=== PATIENT | female | born 1995 | race Caucasian/White ===

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

== ENCOUNTER 2019-12-28 14:23 | Emergency (ER) | payer OTHER ==
[2019-12-28 14:40] VITALS: BP 137/75; PULSE 82; RESP 18; TEMP 99.1
[2019-12-28 15:05] LABS: Appearance,Urine Cloudy (Clear); Bacteria,Urine Rare /hpf; Bilirubin,Urine Negative (Negative); Blood,Urine Large (Negative); Color,Urine Yellow; Glucose,Urine (UA) Negative (Negative); Ketones,Urine Negative (Negative); Leukocyte Esterase,Urine Moderate (Negative); Mucus,Urine Occasional /hpf; Nitrite,Urine Negative (Negative); Protein,Urine Trace (Negative); RBC,Urine >182 /hpf (0-5); Specific Gravity,Urine 1.023 (1.001-1.035); Squamous Epithelial Cell,Urine 17 /hpf (0-4); Urobilinogen,Urine <2.0 mg/dL (<2.0); WBC,Urine 7 /hpf (0-5)
--- NOTE | 2019-12-28 15:34 | ED ---
Back Pain HPI - General Chief Complaint: Back Pain/Injury Stated Complaint: Left side abd pain Time Seen by Provider: 12/28/19 15:31 Source: patient Limitations: no limitations - History of Present Illness Initial Comments: 24-year-old male presenting to the emergency department with a chief complaint of left flank pain. Patient reports this was sudden onset pain is started ye sterday. States the pain is starting to radiate towards her groin. She does report some nausea but denies any vomiting. States the pain is sharp in nature and intermittent. She denies any night sweats fevers or chills. Denies dysuria, increased urgency or frequency. Denies any vaginal symptoms. Denies any chest pain shortness of breath. She does report taking a muscle relaxer home with no significant improvement in symptoms. - Related Data Home Medications Medication Instructions Recorded Confirmed FLUoxetine HCL [PROzac] 40 mg PO DAILY 11/18/13 06/12/14 Norgestimate-Ethinyl Estradiol 1 tab PO DAILY 11/18/13 06/12/14 [Trinessa Tablet] Lisdexamfetamine Dimesylate 30 mg PO QAM 06/12/14 06/12/14 [Vyvanse] PARoxetine [Paxil] 20 mg PO DAILY 06/12/14 06/12/14 Previous Rx's Medication Instructions Recorded Naproxen [Naprosyn] 250 mg PO BID #20 tab 06/12/14 Cephalexin [Keflex] 500 mg PO Q6HR 1 Days #20 cap 12/28/19 Ondansetron Odt [Zofran Odt] 4 mg PO Q8HR PRN #14 tab 12/28/19 Tamsulosin [Flomax] 0.4 mg PO DAILY #7 cap 12/28/19 Allergies Allergy/AdvReac Type Severity Reaction Status Date / Time No Known Allergies Allergy Verified 12/28/19 14:40 Review of Systems ROS Statement: Those systems with pertinent positive or pertinent negative responses have been documented in the HPI. ROS Other: All systems not noted in ROS Statement are negative. Past Medical History Past Medical History: No Reported History History of Any Multi-Drug Resistant Organisms: None Reported Past Surgical History: Orthopedic Surgery, Tonsillectomy Past Psychological History: Anxiety, Bipolar, Depression, PTSD Smoking Status: Current every day smoker Past Alcohol Use History: None Reported Past Drug Use History: None Reported General Exam Limitations: no limitations General appearance: alert, in no apparent distress, obese Head exam: Present: atraumatic, normocephalic, normal inspection Eye exam: Present: normal appearance, PERRL, EOMI Pupils: Present: normal accommodation ENT exam: Present: normal exam, normal oropharynx, mucous membranes moist, TM's normal bilaterally, normal external ear exam Neck exam: Present: normal inspection, full ROM. Absent: tenderness Respiratory exam: Present: normal lung sounds bilaterally. Absent: respiratory distress, wheezes, rales Cardiovascular Exam: Present: regular rate, normal rhythm, normal heart sounds GI/Abdominal exam: Present: soft, tenderness (Left flank left lower quadrant), normal bowel sounds. Absent: distended, guarding, rebound, rigid Extremities exam: Present: normal inspection, full ROM, normal capillary refill. Absent: tenderness, pedal edema, joint swelling, calf tenderness Back exam: Present: normal inspection, full ROM, tenderness, CVA tenderness (L). Absent: CVA tenderness (R) Neurological exam: Present: alert, oriented X3, normal gait Psychiatric exam: Present: normal affect, normal mood Skin exam: Present: warm, dry, intact, normal color Course Vital Signs 12/28/19 14:38 Temperature 99.1 F Pulse Rate 82 Respiratory 18 Rate Blood Pressure 137/75 O2 Sat by Pulse 99 Oximetry Medical Decision Making - Medical Decision Making 24-year-old male presenting to the emergency department with chief complaint of flank pain. Physical examination positive left flank and left CVA tenderness. UA is positive for premature although she is currently on her menstrual period. KUB reveals a 3 mm stone in the left distal ureter. Patient was given Toradol in the ED. Reevaluation patient reports improvement of symptoms. She is not . Patient advised to follow with urologist. She will be discharged with Tylenol 3 starter pack. Keflex for 5 days and Flomax. Strict return parameters were thoroughly discussed the patient was understanding and agreeable. She was advised to drink plenty fluids. Case discussed physician. - Lab Data Lab Results 12/28/19 12/28/19 Range/Units 14:47 14:47 Urine Color Yellow Urine Appearance Cloudy H (Clear) Urine pH 6.0 (5.0-8.0) Ur Specific [place] 1.023 (1.001-1.035) Urine Protein Trace H (Negative) Urine Glucose (UA) Negative (Negative) Urine Ketones Negative (Negative) Urine Blood Large H (Negative) Urine Nitrite Negative (Negative) Urine Bilirubin Negative (Negative) Urine Urobilinogen <2.0 (<2.0) mg/dL Ur Leukocyte Esterase Moderate H (Negative) Urine RBC >182 H (0-5) /hpf Urine WBC 7 H (0-5) /hpf Ur Squamous Epith Cells 17 H (0-4) /hpf Urine Bacteria Rare H (None) /hpf Urine Mucus Occasional H (None) /hpf Urine HCG, Qual Not Detected (Not Detectd) Disposition Clinical Impression: Renal stone, Hematuria Disposition: HOME SELF-CARE Condition: Stable Instructions (If sedation given, give patient instructions): Kidney Stones (ED) Additional Instructions: Take prescribed medication as directed. Follow up with a urologist. Drink plenty of fluids. Return to the emergency department if symptoms worsen. Prescriptions: Tamsulosin [Flomax] 0.4 mg PO DAILY #7 cap Cephalexin [Keflex] 500 mg PO Q6HR 1 Days #20 cap Ondansetron Odt [Zofran Odt] 4 mg PO Q8HR PRN #14 tab PRN Reason: Nausea Is patient prescribed a controlled substance at d/c from ED?: No Referrals: Hawk Gutiérrez DO [Primary Care Provider] - 1-2 days Faisal Live MD [STAFF PHYSICIAN] - 1-2 days Time of Disposition: 16:27
[2019-12-28] MEDS ORDERED: KETOROLAC 15 MG/ML 1 ML VIAL IM STA (15:42)
--- NOTE | 2019-12-28 16:10 | XR ---
EXAMINATION TYPE: XR KUB DATE OF EXAM: 12/28/2019 COMPARISON: NONE HISTORY: Left flank pain TECHNIQUE: 2 views FINDINGS: 2 views upright were obtained and show no sign of intestinal obstruction or pneumoperitoneu m. Fecal pattern is normal. There are no pathologic calcifications over the kidneys. Lung bases are c lear. There is no evidence of a mass. There is a 3 mm calcification at the floor the pelvis on the le ft side. This could be a distal ureteral stone. IMPRESSION: Nonacute bowel gas pattern. Possible small distal left ureteral stone.
[2019-12-28] MEDS ORDERED: ACET/COD 300 MG/30 MG STARTER PACK 6 TAB BTL PO STA (16:11)
== END 2019-12-28 16:45 | disposition home or self-care (01) ==
LOC: EC 14:23
DX: N20.2 Calculus of kidney with calculus of ureter (principal); F41.9 Anxiety disorder, unspecified; F32.9 Major depressive disorder, single episode, unspecified; F17.200 Nicotine dependence, unspecified, uncomplicated; Z79.899 Other long term (current) drug therapy; Z79.3 Long term (current) use of hormonal contraceptives
CPT/HCPCS: 81001; 81025; 74018; 99284; 96372; J1885

== ENCOUNTER 2020-01-02 03:11 | Emergency (ER) | payer OTHER ==
[2020-01-02 03:18] VITALS: TEMP 97.9
[2020-01-02] MEDS ORDERED: KETOROLAC 15 MG/ML 1 ML VIAL IVP STA (03:34)
[2020-01-02] MEDS ORDERED: SODIUM CHLORIDE 0.9% 500 ML 500 ML IV STA (03:34)
[2020-01-02] MEDS ORDERED: SODIUM CHLORIDE 0.9% 1,000 ML IV STA ×2 (03:34)
[2020-01-02] MEDS ORDERED: MORPHINE SULFATE 4 MG/ML SYRINGE IV STA (03:34)
--- NOTE | 2020-01-02 03:37 | ED ---
Recheck HPI - General Chief Complaint: Abdominal Pain Stated Complaint: poss kidney stone Time Seen by Provider: 01/02/20 03:21 Source: patient, RN notes reviewed, old records reviewed Mode of arrival: ambulatory Limitations: no limitations - History of Present Illness Initial Comments: This is a 24-year-old female with a known diagnosis of kidney stone coming in for persistent kidney stone pain left-sided kidney stone. Symptoms have been episodic for 4 days with recent diagnosis. No fevers mild nausea no vomiting. She has been keeping down medication but feels like she started to get a little dehydrated. Pain is not being well-controlled and is actually more severe with increased blood in the ER. This of the patient's first kidney stone MD Complaint: other (Recheck for abdominal pain and kidney stone) -: days(s) Returns Today for: persistent/worsening pain related to initial visit Symptoms Since Prior Visit: worsening pain Context: ran out of medication Associated Symptoms: abdominal pain (Left flank pain) Treatments Prior to Arrival: Given Antibiotics on - Related Data Home Medications Medication Instructions Recorded Confirmed FLUoxetine HCL [PROzac] 40 mg PO DAILY 11/18/13 06/12/14 Norgestimate-Ethinyl Estradiol 1 tab PO DAILY 11/18/13 06/12/14 [Trinessa Tablet] Lisdexamfetamine Dimesylate 30 mg PO QAM 06/12/14 06/12/14 [Vyvanse] PARoxetine [Paxil] 20 mg PO DAILY 06/12/14 06/12/14 Previous Rx's Medication Instructions Recorded Naproxen [Naprosyn] 250 mg PO BID #20 tab 06/12/14 Cephalexin [Keflex] 500 mg PO Q6HR 1 Days #20 cap 12/28/19 Ondansetron Odt [Zofran Odt] 4 mg PO Q8HR PRN #14 tab 12/28/19 Tamsulosin [Flomax] 0.4 mg PO DAILY #7 cap 12/28/19 Ketorolac [Toradol] 10 mg PO Q6HR #12 tab 01/02/20 Allergies Allergy/AdvReac Type Severity Reaction Status Date / Time No Known Allergies Allergy Verified 01/02/20 03:18 Review of Systems ROS Statement: Those systems with pertinent positive or pertinent negative responses have been documented in the HPI. ROS Other: All systems not noted in ROS Statement are negative. Past Medical History Past Medical History: No Reported History History of Any Multi-Drug Resistant Organisms: None Reported Past Surgical History: Orthopedic Surgery, Tonsillectomy Past Psychological History: Anxiety, Bipolar, Depression, PTSD Smoking Status: Current every day smoker Past Alcohol Use History: None Reported Past Drug Use History: None Reported General Exam Limitations: no limitations General appearance: alert, in no apparent distress Head exam: Present: atraumatic, normocephalic, normal inspection Eye exam: Present: normal appearance, PERRL, EOMI. Absent: scleral icterus, conjunctival injection, periorbital swelling ENT exam: Present: normal exam, mucous membranes moist Neck exam: Present: normal inspection. Absent: tenderness, meningismus, l ymphadenopathy Respiratory exam: Present: normal lung sounds bilaterally. Absent: respiratory distress, wheezes, rales, rhonchi, stridor Cardiovascular Exam: Present: regular rate, normal rhythm, normal heart sounds. Absent: systolic murmur, diastolic murmur, rubs, gallop, clicks GI/Abdominal exam: Present: soft, normal bowel sounds. Absent: distended, tenderness, guarding, rebound, rigid Extremities exam: Present: normal inspection, full ROM, normal capillary refill. Absent: tenderness, pedal edema, joint swelling, calf tenderness Back exam: Present: normal inspection Neurological exam: Present: alert, oriented X3, CN II-XII intact Psychiatric exam: Present: normal affect, normal mood Skin exam: Present: warm, dry, intact, normal color. Absent: rash Course Vital Signs 01/02/20 01/02/20 03:14 05:29 Temperature 97.9 F 97.9 F Pulse Rate 96 88 Respiratory 20 19 Rate Blood Pressure 118/63 120/64 O2 Sat by Pulse 99 99 Oximetry - Reevaluation(s) Reevaluation #1: Medical record is reviewed Patient is improvement versus resolution of symptoms Spoke with patient regarding findings here in the ER questions answered Patient feels good for discharge Medical Decision Making - Medical Decision Making 24 female DF for evaluation patient has left flank pain with left kidney stone. Patient's pain is controlled here in the ER will follow-up with urology an outpatient basis - Lab Data Result diagrams: 01/02/20 03:59 01/02/20 03:59 Lab Results 11/19/20 11/19/20 11/19/20 Range/Units 03:59 03:59 03:59 WBC 16.0 H (3.8-10.6) k/uL RBC 4.64 (3.80-5.40) m/uL Hgb 13.7 (11.4-16.0) gm/dL Hct 41.7 (34.0-46.0) % MCV 89.9 (80.0-100.0) fL MCH 29.6 (25.0-35.0) pg MCHC 32.9 (31.0-37.0) g/dL RDW 13.2 (11.5-15.5) % Plt Count 335 (150-450) k/uL MPV 8.2 Neutrophils % 62 % Lymphocytes % 29 % Monocytes % 5 % Eosinophils % 3 % Basophils % 0 % Neutrophils # 9.8 H (1.3-7.7) k/uL Lymphocytes # 4.7 (1.0-4.8) k/uL Monocytes # 0.7 (0-1.0) k/uL Eosinophils # 0.4 (0-0.7) k/uL Basophils # 0.1 (0-0.2) k/uL Sodium (137-145) mmol/L Potassium (3.5-5.1) mmol/L Chloride (98-107) mmol/L Carbon Dioxide (22-30) mmol/L Anion Gap mmol/L BUN (7-17) mg/dL Creatinine (0.52-1.04) mg/dL Est GFR (CKD-EPI)AfAm (>60 ml/min/1.73 sqM) Est GFR (CKD-EPI)NonAf (>60 ml/min/1.73 sqM) Glucose (74-99) mg/dL Calcium (8.4-10.2) mg/dL Total Bilirubin (0.2-1.3) mg/dL AST (14-36) U/L ALT (4-34) U/L Alkaline Phosphatase (38-126) U/L Total Protein (6.3-8.2) g/dL Albumin (3.5-5.0) g/dL Amylase (30-110) U/L Lipase (23-300) U/L Urine Color Yellow Urine Appearance Cloudy H (Clear) Urine pH 6.0 (5.0-8.0) Ur Specific [place] 1.028 (1.001-1.035) Urine Protein Trace H (Negative) Urine Glucose (UA) Negative (Negative) Urine Ketones Negative (Negative) Urine Blood Moderate H (Negative) Urine Nitrite Negative (Negative) Urine Bilirubin Negative (Negative) Urine Urobilinogen <2.0 (<2.0) mg/dL Ur Leukocyte Esterase Small H (Negative) Urine RBC 118 H (0-5) /hpf Urine WBC 6 H (0-5) /hpf Ur Squamous Epith Cells 26 H (0-4) /hpf Urine Bacteria Rare H (None) /hpf Hyaline Casts 1 (0-2) /lpf Urine Mucus Occasional H (None) /hpf Urine HCG, Qual Not Detected (Not Detectd) 01/02/20 Range/Units 03:59 WBC (3.8-10.6) k/uL RBC (3.80-5.40) m/uL Hgb (11.4-16.0) gm/dL Hct (34.0-46.0) % MCV (80.0-100.0) fL MCH (25.0-35.0) pg MCHC (31.0-37.0) g/dL RDW (11.5-15.5) % Plt Count (150-450) k/uL MPV Neutrophils % % Lymphocytes % % Monocytes % % Eosinophils % % Basophils % % Neutrophils # (1.3-7.7) k/uL Lymphocytes # (1.0-4.8) k/uL Monocytes # (0-1.0) k/uL Eosinophils # (0-0.7) k/uL Basophils # (0-0.2) k/uL Sodium 136 L (137-145) mmol/L Potassium 4.3 (3.5-5.1) mmol/L Chloride 107 (98-107) mmol/L Carbon Dioxide 22 (22-30) mmol/L Anion Gap 7 mmol/L BUN 17 (7-17) mg/dL Creatinine 0.75 (0.52-1.04) mg/dL Est GFR (CKD-EPI)AfAm >90 (>60 ml/min/1.73 sqM) Est GFR (CKD-EPI)NonAf >90 (>60 ml/min/1.73 sqM) Glucose 99 (74-99) mg/dL Calcium 9.4 (8.4-10.2) mg/dL Total Bilirubin 0.2 (0.2-1.3) mg/dL AST 19 (14-36) U/L ALT 21 (4-34) U/L Alkaline Phosphatase 95 (38-126) U/L Total Protein 6.8 (6.3-8.2) g/dL Albumin 4.1 (3.5-5.0) g/dL Amylase 49 (30-110) U/L Lipase 57 (23-300) U/L Urine Color Urine Appearance (Clear) Urine pH (5.0-8.0) Ur Specific [place] (1.001-1.035) Urine Protein (Negative) Urine Glucose (UA) (Negative) Urine Ketones (Negative) Urine Blood (Negative) Urine Nitrite (Negative) Urine Bilirubin (Negative) Urine Urobilinogen (<2.0) mg/dL Ur Leukocyte Esterase (Negative) Urine RBC (0-5) /hpf Urine WBC (0-5) /hpf Ur Squamous Epith Cells (0-4) /hpf Urine Bacteria (None) /hpf Hyaline Casts (0-2) /lpf Urine Mucus (None) /hpf Urine HCG, Qual (Not Detectd) - Radiology Data Radiology results: report reviewed (CT of the abdomen and pelvis is positive kidney stone), image reviewed Disposition Clinical Impression: Renal stone, Left ureteral calculus Disposition: HOME SELF-CARE Condition: Good Instructions (If sedation given, give patient instructions): Kidney Stones (ED) Prescriptions: Ketorolac [Toradol] 10 mg PO Q6HR #12 tab Is patient prescribed a controlled substance at d/c from ED?: No Referrals: Flip Hall MD [STAFF PHYSICIAN] - 1-2 days
[2020-01-02 04:11] LABS: Basophils # (A) 0.1 k/uL (0-0.2); Basophils % (A) 0 %; Eosinophils # (A) 0.4 k/uL (0-0.7); Eosinophils % (A) 3 %; HCT 41.7 % (34.0-46.0); HGB 13.7 gm/dL (11.4-16.0); Lymphocytes # (A) 4.7 k/uL (1.0-4.8); Lymphocytes % (A) 29 %; MCH 29.6 pg (25.0-35.0); MCHC 32.9 g/dL (31.0-37.0); MCV 89.9 fL (80.0-100.0); Mean Platelet Volume 8.2; Monocytes # (A) 0.7 k/uL (0-1.0); Monocytes % (A) 5 %; Neutrophils # (A) 9.8 k/uL (1.3-7.7); Neutrophils % (A) 62 %; Platelet Count 335 k/uL (150-450); RBC 4.64 m/uL (3.80-5.40); RDW 13.2 % (11.5-15.5)
[2020-01-02 04:13] LABS: Appearance,Urine Cloudy (Clear); Bacteria,Urine Rare /hpf; Bilirubin,Urine Negative (Negative); Blood,Urine Moderate (Negative); Color,Urine Yellow; Glucose,Urine (UA) Negative (Negative); Hyaline Casts,Urine 1 /lpf (0-2); Ketones,Urine Negative (Negative); Leukocyte Esterase,Urine Small (Negative); Mucus,Urine Occasional /hpf; Nitrite,Urine Negative (Negative); Protein,Urine Trace (Negative); RBC,Urine 118 /hpf (0-5); Specific Gravity,Urine 1.028 (1.001-1.035); Squamous Epithelial Cell,Urine 26 /hpf (0-4); Urobilinogen,Urine <2.0 mg/dL (<2.0); WBC,Urine 6 /hpf (0-5)
[2020-01-02 04:23] LABS: ALT 21 U/L (4-34); AST 19 U/L (14-36); African American GFR (CKD) >90 (>60 ml/min/1.73 sqM); Albumin 4.1 g/dL (3.5-5.0); Alkaline Phosphatase 95 U/L (38-126); Amylase 49 U/L (30-110); Anion Gap 7 mmol/L; Blood Urea Nitrogen 17 mg/dL (7-17); Calcium 9.4 mg/dL (8.4-10.2); Carbon Dioxide 22 mmol/L (22-30); Chloride 107 mmol/L (98-107); Glucose 99 mg/dL (74-99); Lipase 57 U/L (23-300); Non-African American GFR(CKD) >90 (>60 ml/min/1.73 sqM); Potassium 4.3 mmol/L (3.5-5.1); Sodium 136 mmol/L (137-145); Total Bilirubin 0.2 mg/dL (0.2-1.3); Total Protein 6.8 g/dL (6.3-8.2)
--- NOTE | 2020-01-02 04:43 | CT ---
EXAM: CT Abdomen and Pelvis Without Intravenous Contrast CLINICAL HISTORY: ITS.REASON CT Reason: abdominal pain TECHNIQUE: Axial computed tomography images of the abdomen and pelvis without intravenous contrast. CTDI is 19.27 mGy and DLP is 1075.4 mGy-cm. This CT exam was performed using one or more of the following dose reduction techniques: automated exposure control, adjustment of the mA and/or kV according to patient size, and/or use of iterative reconstruction technique. COMPARISON: No relevant prior studies available. FINDINGS: Lung bases: Unremarkable. ABDOMEN: Liver: There are a couple masslike lesions within the liver the largest in hepatic segment 5/6 measured to 6.4 cm. Gallbladder and bile ducts: Unremarkable. Pancreas: Unremarkable. Spleen: Unremarkable. Adrenals: Unremarkable. Kidneys and ureters: 5 mm calculus within the distal left ureter which causes mild hydroureteronephrosis. Stomach and bowel: Unremarkable. PELVIS: Appendix: Appendix is unremarkable. Bladder: Unremarkable. Reproductive: Unremarkable as visualized. ABDOMEN and PELVIS: Intraperitoneal space: Unremarkable. Bones/joints: No acute fracture. No dislocation. Soft tissues: Unremarkable. Vasculature: Unremarkable. Lymph nodes: Unremarkable. Other findings: Lower thorax is unremarkable. IMPRESSION: 1. 5 mm calculus within the distal left ureter which causes mild hydroureteronephrosis. 2. There are a couple masslike lesions within the liver the largest in hepatic segment 5/6 measured to 6.4 cm. Recommend liver protocol contrast-enhanced MRI for further evaluation if indicated.
[2020-01-02] MEDS ORDERED: Acetaminophen-Codeine 300-30mg TAB PO STA (04:54)
[2020-01-02] MEDS ORDERED: ACET/COD 300 MG/30 MG STARTER PACK 6 TAB BTL PO STA (04:54)
[2020-01-02 05:42] VITALS: BP 120/64; PULSE 88; RESP 19
== END 2020-01-02 05:29 | disposition home or self-care (01) ==
LOC: EC 03:11
DX: N20.2 Calculus of kidney with calculus of ureter (principal); F41.9 Anxiety disorder, unspecified; F32.9 Major depressive disorder, single episode, unspecified; F43.10 Post-traumatic stress disorder, unspecified; F17.200 Nicotine dependence, unspecified, uncomplicated; Z79.3 Long term (current) use of hormonal contraceptives; Z79.899 Other long term (current) drug therapy
CPT/HCPCS: 36415; 80053; 82150; 83690; 85025; 81001; 81025; 74176; 99285; 96374; 96375; 96361; J2270; J1885

== ENCOUNTER → 2020-01-08 | Outpatient (CLI) | payer OTHER ==
[2020-01-08 10:59] LABS: Appearance,Urine Cloudy (Clear); Bacteria,Urine Rare /hpf; Bilirubin,Urine Negative (Negative); Blood,Urine Moderate (Negative); Color,Urine Yellow; Glucose,Urine (UA) Negative (Negative); Ketones,Urine Negative (Negative); Leukocyte Esterase,Urine Small (Negative); Mucus,Urine Occasional /hpf; Nitrite,Urine Negative (Negative); Protein,Urine Negative (Negative); RBC,Urine 14 /hpf (0-5); Specific Gravity,Urine 1.023 (1.001-1.035); Squamous Epithelial Cell,Urine 13 /hpf (0-4); Urobilinogen,Urine <2.0 mg/dL (<2.0); WBC,Urine 8 /hpf (0-5)
== END | disposition home or self-care (01) ==
LOC: LABPAT 09:32
PROVIDERS: ATTEND Urology
DX: Z01.818 Encounter for other preprocedural examination (principal); N20.1 Calculus of ureter; R31.29 Other microscopic hematuria
CPT/HCPCS: 81001; 87086

== ENCOUNTER 2020-01-17 10:51 | Day surgery (SDC) | payer OTHER ==
[2020-01-15 10:14] VITALS: BMI 37.4
--- NOTE | 2020-01-16 21:25 | P.HPIHPCON ---
History of Present Illness H&P Date: 01/17/20 Chief Complaint: left ureteral stone Ms Jeffers is a 24 yo female with hx of 5mm left distal ureteral stone. She is symptomatic from her stone and has failed medical expulsive therapy. option of ureteroscopy with holmium laser lithotripsy were discussed with her. I discussed the risk which includes but not limited to bleeding, infection and injury to the ureter. Also discussed risk from anesthesia, She understood all risks and agreed to proceed with left sided ureteroscopy with holmium laser lithotripsy, stone basketting and stent placement Consent for Procedure: I have explained the operation/procedure to the patient, including the risks, benefits, side effects, alternative therapies (including not receiving the proposed treatment or service), the likelihood of the patient achieving his/her goals, and potential recuperation problems for the procedure/sedation/analgesia, as well as any blood products, if indicated. I also explained to the patient the risks, benefits and side effects of the alternatives, as well as the risks related to not receiving the proposed procedure, care, treatment, or services. - Constitutional Constitutional: Denies chills, Denies fever - Respiratory Respiratory: Denies cough, Denies 7 - Gastrointestinal Gastrointestinal: Denies abdominal pain, Denies diarrhea, Denies nausea, Denies vomiting - Genitourinary (Female) Genitourinary: Reports flank pain Past Medical History Past Medical History: No Reported History Additional Past Medical History / Comment(s): heart murmur, kidney stones. History of Any Multi-Drug Resistant Organisms: None Reported Past Surgical History: Tonsillectomy Additional Past Surgical History / Comment(s): fx arm realignment. Past Anesthesia/Blood Transfusion Reactions: No Reported Reaction Past Psychological History: Anxiety, Bipolar, Depression, PTSD Smoking Status: Current every day smoker Past Alcohol Use History: Rare Additional Past Alcohol Use History / Comment(s): smokes 1/2-1ppd, started smoking age 18. Past Drug Use History: None Reported - Past Family History Mother Family Medical History: No Reported History Medications and Allergies Home Medications Medication Instructions Recorded Confirmed Type Cephalexin [Keflex] 500 mg PO BID 01/15/20 01/15/20 History Depo-Injection (Unknown Dose) 1 dose SQ DIRECTED 01/15/20 History Sertraline [Zoloft] 100 mg PO HS 01/15/20 01/15/20 History Allergies Allergy/AdvReac Type Severity Reaction Status Date / Time No Known Allergies Allergy Verified 01/15/20 09:45 Surgical - Exam - General well developed, well nourished, no distress, moderate pain - Eyes PERRL, normal ocular movement - Respiratory normal expansion, normal respiratory effort - Psychiatric oriented to time, oriented to person, oriented to place, speech is normal Assessment and Plan Assessment: 24 yo female with hx of 5 mm left distal ureteral stone -Or for left sided ureteroscopy with holmium laser lithotripsy, stone basketting and stent placement
[~2020-01-17 10:51] MED LIST: DEXAMETHASONE SOD PHOSPHATE 4 MG/ML 1 ML VIAL IV ONE; LACTATED RINGERS 1,000 ML IV SCH; LIDOCAINE 1% (10MG/ML) FOR IV START INTRADERMA PRN
--- NOTE | 2020-01-17 11:20 | XR ---
EXAMINATION TYPE: XR KUB DATE OF EXAM: 01/17/2020 COMPARISON: 12/28/2019 INDICATION: Lithotripsy TECHNIQUE: Single view abdomen frontal projection FINDINGS: There is a normal bowel gas pattern. Psoas margins are normal. No organomegaly is present. There is some calcification in the region of the left hemipelvis which is a change from comparison th is measures 0.5 cm. IMPRESSION: 1. New left hemipelvis calcification could be a distal ureteral stone.
[2020-01-17] MEDS: ONDANSETRON 4 MG/2 ML VIAL ONE ×2 (11:43→13:40)
[2020-01-17] MEDS ORDERED: LIDOCAINE 1% INJ 10MG/ML (20 ML MDV) ONE (12:49)
[2020-01-17] MEDS ORDERED: MIDAZOLAM 2 MG/2 ML VIAL ONE (12:49)
[2020-01-17] MEDS ORDERED: PROPOFOL 10 MG/ML 20 ML VIAL IV ONE (12:49)
[2020-01-17] MEDS ORDERED: fentaNYL (PF) 50 MCG/ML 2 ML AMP ONE (12:49)
[2020-01-17 13:46] VITALS: TEMP 98.7
--- NOTE | 2020-01-17 14:04 | FL ---
Fluoroscopy INDICATION: Pain FINDINGS: Fluoroscopy time: 4 seconds. Images obtained: 1. IMPRESSIONS: 1. Documentation of fluoroscopy.
[2020-01-17 14:18] VITALS: RESP 16
[2020-01-17 14:30] VITALS: BP 131/81; PULSE 70
--- NOTE | 2020-01-17 15:23 | P.OP ---
Date of Procedure: 01/17/20 Preoperative Diagnosis: left ureteral calculi Postoperative Diagnosis: Same Procedure(s) Performed: Cystoscopy, left ureteroscopy, retrograde pyelogram holmium laser lithotripsy, stone basketing, stent placement Implants: [id number] cm stent Indications for Procedure: Ms Jeffers is a 24 yo female with hx of 5mm left distal ureteral stone. She is symptomatic from her stone and has failed medical expulsive therapy. option of ureteroscopy with holmium laser lithotripsy were discussed with her. I discussed the risk which includes but not limited to bleeding, infection and injury to the ureter. Also discussed risk from anesthesia, She understood all risks and agreed to proceed with left sided ureteroscopy with holmium laser lithotripsy, stone basketting and stent placement Operative Findings: Left distal ureteral stone Description of Procedure: Patient was brought to the operating room, general anesthesia was induced. She was prepped and draped in sterile fashion a placed in dorsal lithotomy position. Cystoscopy fitted with a 21-[place]er sheath was inserted per urethra, cystoscopy was performed showed no abnormality within the bladder. At this time attention was carried to the left ureteral orifice. The cystoscope was withdrawn and a semirigid ureteroscope was inserted and advanced up the left ureteral orifice, stone was encountered in the distal ureter. Using the holmium laser the stone was fragmented into smaller fragments, the fragments were removed using a stone basket and sent for analysis. At this time the ureteroscope was advanced up into the UPJ and no additional stones or fragments were noticed, pullback ureteroscopy was performed showed no injury to the ureter or any sizable fragments, of note the site of stone impaction was edematous. At this time a sensor wire was advanced through the ureteroscope and the ureteroscope was withdrawn with the wire in place. Next a 6-[place] Islander by 26 cm stent was passed over the wire. A proximal curl was was on fluoroscopy and distal curl was visualized using cystoscope. The bladder was injected and of the case, the stones were sent for analysis. The patient was tolerated the procedure well and significant PACU in stable condition
== END 2020-01-17 14:45 ==
LOC: OR 10:51
PROVIDERS: ATTEND Urology
DX: N20.1 Calculus of ureter (principal); F31.9 Bipolar disorder, unspecified; F41.9 Anxiety disorder, unspecified; F43.10 Post-traumatic stress disorder, unspecified; F17.210 Nicotine dependence, cigarettes, uncomplicated; Z87.442 Personal history of urinary calculi; Z87.81 Personal history of (healed) traumatic fracture; Z79.3 Long term (current) use of hormonal contraceptives; Z79.899 Other long term (current) drug therapy; Z98.890 Other specified postprocedural states
CPT/HCPCS: 52356; 81025; 82365; 74018; C2625; C1894; C1758; C1769 ×3; J2250; J1100; J0690; J2405; J2001; J3010; J2704

== ENCOUNTER → 2020-02-04 | Outpatient (CLI) | payer OTHER ==
--- NOTE | 2020-02-04 12:45 | US ---
EXAMINATION TYPE: US kidneys/renal and bladder DATE OF EXAM: 02/04/2020 COMPARISON: CT dated 01/02/2020, KUB CLINICAL HISTORY: N20.1 Calculus of Ureter. Pt.stated had left ureteral stone(s) with retrieval and s tent in December 2019. Still has left lateral pelvic pain. Takes medication for mood stabilization an d depression. EXAM MEASUREMENTS: Right Kidney: 12.2 x 5.5 x 4.4 cm Left Kidney: 11.1 x 5.5 x 5.4 cm Post Void Residual Volume: 0.9 mL Incidental finding by US: Right liver lobe heterogeneous, hypoechoic, solid mass with vascularity is seen = 6.0 x 6.5 x 5.0cm. Patient stated is scheduled for CT? MRI liver tomorrow. Right Kidney: Possible mild pelviectasis, no masses seen; junctional wedge fat seen lateral cortical periphery. Left Kidney: junctional wedge fat seen lateral cortical periphery; no evident hydronephrosis Bladder: partially filled Bilateral Jets seen: yes Normal Post Void Residual: yes There is no evidence for hydronephrosis at this point in time. No nephrolithiasis is seen. Bilatera l ureteral jets are seen. IMPRESSION: Liver masses as noted on prior ultrasound. Mild pelviectasis noted on the right.
== END | disposition home or self-care (01) ==
LOC: RADUSWWP 10:18
PROVIDERS: ATTEND Urology
DX: N28.89 Other specified disorders of kidney and ureter (principal); R16.0 Hepatomegaly, not elsewhere classified
CPT/HCPCS: 76770

== ENCOUNTER → 2020-02-05 | Outpatient (CLI) | payer OTHER ==
--- NOTE | 2020-02-08 13:53 | MR ---
MR abdomen with and without contrast HISTORY: Hepatomegaly Multiplanar multisequence and postcontrast images obtained through the abdomen following [address] abdomen pelvis 01/02/2020 There are at least 4 distinct abnormal foci within the liver, largest seen in the inferior right lobe is approximately 6.3 cm, additional lesions within the right lobe on axial image 64 of the T2 data s et series 02/14/2000, additional lesion in the left lobe measuring 2 cm, towards the dome additional le juvencio is measured at 3 cm. Lesions show mixed intensity on T2-weighted images, multiple areas of incre ased signal present, postcontrast images show some enhancement of these well-defined lesions, precont rast images T 1 low signal. Largest lesion shows a central focus of low signal which is also low and T2-weighted sequences and show some delayed enhancement, lesion towards the dome shows similar phenom enon. Signal pattern is intense on early postcontrast images and fades to Isovue intense on more trev yed images following contrast administration. Signal intensity is similar in the various lesions. The liver is enlarged, span is greater than 20 cm. No dilated intra or extrahepatic biliary ducts. Lung bases are clear. There is no retroperitoneal adenopathy or ascites. No evident adrenal mass. Kid neys enhance unremarkably. Aorta shows normal caliber. Spleen is not enlarged. Pancreas is normal. Ga llbladder shows no stone. IMPRESSION: Findings likely represent multiple foci of focal nodular hyperplasia. Follow-up could BE performed to assess for stability.
== END | disposition home or self-care (01) ==
LOC: RADMRIMAIN 10:27
PROVIDERS: ATTEND Family Medicine
DX: R16.0 Hepatomegaly, not elsewhere classified (principal)
CPT/HCPCS: 74183; A9585

== ENCOUNTER → 2020-06-01 | Outpatient (CLI) | payer OTHER | END | disposition home or self-care (01) | LOC: LABWHC1 16:17 | PROVIDERS: ATTEND Family Medicine | DX: Z20.822 Contact with and (suspected) exposure to COVID-19 (principal); R51.9 Headache, unspecified | CPT/HCPCS: U0003; C9803; U0005 ==

== ENCOUNTER 2020-07-17 14:58 | Emergency (ER) | payer OTHER ==
[2020-07-17 16:09] VITALS: BP 129/76; PULSE 71; RESP 20; TEMP 98.1
--- NOTE | 2020-07-17 16:44 | ED ---
ENT HPI - General Chief complaint: ENT Stated complaint: JACKIE Time Seen by Provider: 07/17/20 16:17 Source: patient Mode of arrival: ambulatory Limitations: no limitations - History of Present Illness Initial comments: 25-year-old female presents to emergency Department with a chief complaint of a sore throat. He states it started about 3 days ago after she began using a new vape. She reports a sore throat became worse today and she felt like her throat was closing, however she was still able to eat drink talk without any issues. No difficulties breathing whatsoever. Patient reports even though the vague cause her symptoms, she still continue to smoke. This is not a THC based vaporizer. She denies any chest pain or shortness of breath. - Related Data Home Medications Medication Instructions Recorded Confirmed Cephalexin [Keflex] 500 mg PO BID 01/15/20 01/17/20 Depo-Injection (Unknown Dose) 1 dose SQ DIRECTED 01/15/20 01/17/20 Sertraline [Zoloft] 100 mg PO HS 01/15/20 01/17/20 Previous Rx's Medication Instructions Recorded Ketorolac [Toradol] 10 mg PO Q6HR #15 tab 01/17/20 Allergies Allergy/AdvReac Type Severity Reaction Status Date / Time No Known Allergies Allergy Verified 07/17/20 16:09 Review of Systems ROS Statement: Those systems with pertinent positive or pertinent negative responses have been documented in the HPI. ROS Other: All systems not noted in ROS Statement are negative. Past Medical History Past Medical History: No Reported History Additional Past Medical History / Comment(s): heart murmur, kidney stones. History of Any Multi-Drug Resistant Organisms: None Reported Past Surgical History: Orthopedic Surgery, Tonsillectomy Additional Past Surgical History / Comment(s): fx arm realignment. Past Anesthesia/Blood Transfusion Reactions: No Reported Reaction Past Psychological History: Anxiety, Bipolar, Depression, PTSD Smoking Status: Current every day smoker, Vaper Past Alcohol Use History: None Reported - Past Family History Mother Family Medical History: No Reported History General Exam Limitations: no limitations General appearance: alert, in no apparent distress (Patient does not appear to be in any respiratory distress.), obese Head exam: Present: atraumatic, normocephalic, normal inspection Eye exam: Present: normal appearance, PERRL, EOMI Pupils: Present: normal accommodation ENT exam: Present: normal exam, normal oropharynx (Oropharyngeal examination unremarkable.), mucous membranes moist, TM's normal bilaterally, normal external ear exam Neck exam: Present: normal inspection, tenderness, full ROM. Absent: meningismus, lymphadenopathy, thyromegaly Respiratory exam: Present: normal lung sounds bilaterally. Absent: respiratory distress, wheezes, rales, rhonchi, stridor, chest wall tenderness, accessory muscle use Cardiovascular Exam: Present: regular rate, normal rhythm, normal heart sounds. Absent: systolic murmur Extremities exam: Present: normal inspection, full ROM, normal capillary refill. Absent: tenderness, pedal edema, joint swelling Back exam: Present: normal inspection, full ROM. Absent: tenderness, CVA tenderness (R), CVA tenderness (L) Neurological exam: Present: alert, oriented X3 Psychiatric exam: Present: normal affect, normal mood Skin exam: Present: warm, dry, intact, normal color Course Vital Signs 07/17/20 16:05 Temperature 98.1 F Pulse Rate 71 Respiratory 20 Rate Blood Pressure 129/76 O2 Sat by Pulse 98 Oximetry Medical Decision Making - Medical Decision Making 25-year-old female presents to department a chief complaint of sore throat. On physical examination, patient does not appear in any respiratory distress. She is talking without any difficulties in full sentences. Oropharyngeal examination is unremarkable. Vital signs are within normal limits. I suspect her symptoms are secondary to starting the new vaporizer 3 days ago. I advised her to stop smoking altogether. Advise her to perform salt water rinses and also trying a cough drop to help with her symptoms. Return parameters were discussed with patient is an ascending agreeable. Case discussed with Disposition Clinical Impression: Sore throat Disposition: HOME SELF-CARE Condition: Stable Instructions (If sedation given, give patient instructions): Strep Throat (DC) Additional Instructions: Please return to the Emergency Department if symptoms worsen or any other concerns. Is patient prescribed a controlled substance at d/c from ED?: No Referrals: Hawk Gutiérrez DO [Primary Care Provider] - 1-2 days Time of Disposition: 16:40
== END 2020-07-17 16:55 | disposition home or self-care (01) ==
LOC: EC 14:58
DX: J02.9 Acute pharyngitis, unspecified (principal); F32.9 Major depressive disorder, single episode, unspecified; F17.200 Nicotine dependence, unspecified, uncomplicated; Z90.09 Acquired absence of other part of head and neck; Z87.442 Personal history of urinary calculi
CPT/HCPCS: 99283

== ENCOUNTER → 2020-11-25 | Outpatient (CLI) | payer OTHER ==
--- NOTE | 2020-11-26 07:33 | XR ---
EXAMINATION TYPE: XR lumbar spine 2 or 3V DATE OF EXAM: 11/25/2020 COMPARISON: None HISTORY: Low back pain TECHNIQUE: 3 views lumbar spine FINDINGS: There are 5 lumbar-type vertebral bodies. The pedicles are intact. Vertebral body heights a re preserved. Disc heights are preserved. T12 ribs are mesentery IMPRESSION: 1. No acute osseous abnormality lumbar spine
== END | disposition home or self-care (01) ==
LOC: RADXRMAIN 16:56
PROVIDERS: ATTEND Nurse Practitioner Family
DX: M54.50 Low back pain, unspecified (principal)
CPT/HCPCS: 72100

== ENCOUNTER → 2020-11-25 | Outpatient (CLI) | payer OTHER | END | disposition home or self-care (01) | LOC: RADXRMAIN 16:50 | PROVIDERS: ATTEND Nurse Practitioner Family | DX: Z53.9 Procedure and treatment not carried out, unspecified reason (principal) ==

== ENCOUNTER 2021-02-25 22:35 | Emergency (ER) | payer OTHER ==
[2021-02-25 22:41] VITALS: BP 128/72; PULSE 111; RESP 20; TEMP 99
[2021-02-25] MEDS: ACET/COD 300 MG/30 MG STARTER PACK 6 TAB BTL PO STA (23:12)
[2021-02-25] MEDS: KETOROLAC 15 MG/ML 1 ML VIAL IM STA (23:12)
--- NOTE | 2021-02-25 23:38 | XR ---
EXAMINATION TYPE: XR ankle complete RT DATE OF EXAM: 02/25/2021 COMPARISON: NONE HISTORY: Pain. Fall TECHNIQUE: 3 views FINDINGS: Ankle mortise appears anatomic. I see no fracture nor dislocation. Joint spaces are normal. IMPRESSION: Negative right ankle exam
--- NOTE | 2021-02-25 23:41 | XR ---
EXAMINATION TYPE: XR foot complete RT DATE OF EXAM: 02/25/2021 COMPARISON: NONE HISTORY: Pain TECHNIQUE: 3 views FINDINGS: Metatarsals are intact. I see no fracture nor dislocation. Joint spaces are normal. IMPRESSION: Negative right foot exam
--- NOTE | 2021-02-25 23:54 | ED ---
Lower Extremity Injury HPI - General Chief Complaint: Extremity Injury, Lower Stated Complaint: RT leg injury Time Seen by Provider: 02/25/21 22:49 Source: patient Mode of arrival: ambulatory Limitations: no limitations - History of Present Illness Initial Comments: 25-year-old female patient presents to the emergency department today for evaluation of right ankle and foot pain. Patient reports on 2 stairs. States it caused her to roll her ankle. She heard a popping sound. She reports pain to the medial ankle and radiating over the top of her foot. She denies taking anything for pain. Denies numbness or tingling to the foot. She denies falling, hitting her head, losing consciousness. Denies any other injuries. She denies chance of . - Related Data Home Medications Medication Instructions Recorded Confirmed Cephalexin [Keflex] 500 mg PO BID 01/15/20 01/17/20 Depo-Injection (Unknown Dose) 1 dose SQ DIRECTED 01/15/20 01/17/20 Sertraline [Zoloft] 100 mg PO HS 01/15/20 01/17/20 Previous Rx's Medication Instructions Recorded Ketorolac [Toradol] 10 mg PO Q6HR #15 tab 01/17/20 Ibuprofen [Motrin] 600 mg PO Q8HR PRN #30 tab 02/25/21 Allergies Allergy/AdvReac Type Severity Reaction Status Date / Time No Known Allergies Allergy Verified 02/25/21 22:41 Review of Systems ROS Statement: Those systems with pertinent positive or pertinent negative responses have been documented in the HPI. ROS Other: All systems not noted in ROS Statement are negative. Past Medical History Past Medical History: No Reported History Additional Past Medical History / Comment(s): heart murmur, kidney stones. History of Any Multi-Drug Resistant Organisms: None Reported Past Surgical History: Orthopedic Surgery, Tonsillectomy Additional Past Surgical History / Comment(s): fx arm realignment. Past Anesthesia/Blood Transfusion Reactions: No Reported Reaction Past Psychological History: Anxiety, Bipolar, Depression, PTSD Smoking Status: Current every day smoker Past Alcohol Use History: None Reported Past Drug Use History: None Reported - Past Family History Mother Family Medical History: No Reported History General Exam Limitations: no limitations General appearance: alert, in no apparent distress, other (This is a well- developed, well-nourished adult female in no acute distress.) ENT exam: Present: normal exam, normal oropharynx, mucous membranes moist Respiratory exam: Present: normal lung sounds bilaterally. Absent: respiratory distress, wheezes, rales, rhonchi, stridor Cardiovascular Exam: Present: normal rhythm, tachycardia, normal heart sounds. Absent: systolic murmur, diastolic murmur, rubs, gallop, clicks GI/Abdominal exam: Present: soft, normal bowel sounds. Absent: distended, tenderness, guarding, rebound, rigid Extremities exam: Present: full ROM, normal capillary refill, other (There is soft tissue swelling surrounding the right lateral and medial malleolus. There is tenderness over the dorsal aspect of the foot and over both medial and lateral malleolus. Skin is otherwise pink, warm, dry. Cap refill less than 3 seconds. Pedal and posttibial pulses 2+.). Absent: normal inspection, tenderness, pedal edema, joint swelling, calf tenderness Neurological exam: Present: alert, oriented X3, CN II-XII intact Psychiatric exam: Present: normal affect, normal mood Skin exam: Present: warm, dry, intact, normal color. Absent: rash Course Vital Signs 02/25/21 22:38 Temperature 99.0 F Pulse Rate 111 H Respiratory 20 Rate Blood Pressure 128/72 O2 Sat by Pulse 98 Oximetry Medical Decision Making - Medical Decision Making 25-year-old female patient presents for evaluation of right ankle and foot pain. Physical examination did reveal soft tissue swelling surrounding the right medial and lateral malleolus. Tenderness over the dorsal aspect. Neurovascular status is intact. X-ray of the right ankle and foot were negative. She is placed in ankle stirrup splint. Educated regarding rest, ice, elevation. Given ibuprofen prescription. She is instructed to follow-up with her primary care physician for recheck in 1-2 days. Return parameters were discussed in detail. She verbalizes understanding and agrees with this plan. My attending is Dr. Ham. - Radiology Data Radiology results: report reviewed, image reviewed 3 views of the right foot are obtained. Report was reviewed in its entirety. Impression by Dr. Ross shows negative right foot examined. 3 views of the right ankle are obtained. Report was reviewed in its entirety. Impression by Dr. Ross shows negative right ankle exam. Disposition Clinical Impression: Right ankle sprain Disposition: HOME SELF-CARE Condition: Good Instructions (If sedation given, give patient instructions): Ankle Sprain (ED) Additional Instructions: Rest, ice, elevate the right ankle. Use splint for comfort and support. Take medication as needed for pain control. Follow-up with the primary care physician for recheck of his symptoms are not improved over the next week. Return for any new, worsening, or concerning symptoms. Prescriptions: Ibuprofen [Motrin] 600 mg PO Q8HR PRN #30 tab PRN Reason: Pain Is patient prescribed a controlled substance at d/c from ED?: No Referrals: Hawk Gutiérrez DO [Primary Care Provider] - 1-2 days Time of Disposition: 23:53
== END 2021-02-26 00:04 | disposition home or self-care (01) ==
LOC: EC 22:35
DX: S93.401A Sprain of unspecified ligament of right ankle, initial encounter (principal); F17.200 Nicotine dependence, unspecified, uncomplicated; X50.9XXA Other and unspecified overexertion or strenuous movements or postures, initial encounter; Y93.01 Activity, walking, marching and hiking; Y92.009 Unspecified place in unspecified non-institutional (private) residence as the place of occurrence of the external cause
CPT/HCPCS: 73610; 73630; 99283; 96372; J1885

== ENCOUNTER 2021-06-11 22:04 | Emergency (ER) | payer OTHER ==
[2021-06-11 22:57] VITALS: RESP 16; TEMP 99.5
[2021-06-11 23:28] LABS: Basophils # (A) 0.1 k/uL (0-0.2); Basophils % (A) 1 %; Eosinophils # (A) 0.2 k/uL (0-0.7); Eosinophils % (A) 1 %; HCT 43.9 % (34.0-46.0); HGB 14.7 gm/dL (11.4-16.0); Lymphocytes # (A) 4.7 k/uL (1.0-4.8); Lymphocytes % (A) 34 %; MCH 29.4 pg (25.0-35.0); MCHC 33.4 g/dL (31.0-37.0); Mean Platelet Volume 7.9; Monocytes # (A) 0.6 k/uL (0-1.0); Monocytes % (A) 5 %; Neutrophils # (A) 7.7 k/uL (1.3-7.7); Neutrophils % (A) 57 %; Platelet Count 386 k/uL (150-450); RBC 4.99 m/uL (3.80-5.40); RDW 13.2 % (11.5-15.5); WBC 13.6 k/uL (3.8-10.6)
[2021-06-11 23:40] LABS: ALT 26 U/L (4-34); AST 25 U/L (14-36); African American GFR (CKD) >90 (>60 ml/min/1.73 sqM); Albumin 4.4 g/dL (3.5-5.0); Alkaline Phosphatase 105 U/L (38-126); Anion Gap 11 mmol/L; Blood Urea Nitrogen 6 mg/dL (7-17); Calcium 9.3 mg/dL (8.4-10.2); Carbon Dioxide 24 mmol/L (22-30); Chloride 103 mmol/L (98-107); Glucose 83 mg/dL (74-99); Non-African American GFR(CKD) >90 (>60 ml/min/1.73 sqM); Potassium 3.3 mmol/L (3.5-5.1); Sodium 138 mmol/L (137-145); Total Bilirubin 0.7 mg/dL (0.2-1.3); Total Protein 7.8 g/dL (6.3-8.2)
[2021-06-12 00:19] LABS: Appearance,Urine Clear (Clear); Bacteria,Urine Rare /hpf; Bilirubin,Urine Negative (Negative); Blood,Urine Negative (Negative); Color,Urine Light Yellow; Glucose,Urine (UA) Negative (Negative); Ketones,Urine Negative (Negative); Leukocyte Esterase,Urine Small (Negative); Nitrite,Urine Negative (Negative); Protein,Urine Negative (Negative); RBC,Urine 2 /hpf (0-5); Specific Gravity,Urine 1.006 (1.001-1.035); Squamous Epithelial Cell,Urine 4 /hpf (0-4); Urobilinogen,Urine <2.0 mg/dL (<2.0); WBC,Urine 3 /hpf (0-5)
[2021-06-12] MEDS ORDERED: KETOROLAC 15 MG/ML 1 ML VIAL IVP STA (00:59)
[2021-06-12] MEDS ORDERED: SODIUM CHLORIDE 0.9% 1,000 ML IV STA (00:59)
[2021-06-12] MEDS ORDERED: ONDANSETRON 4 MG/2 ML VIAL IVP STA (00:59)
--- NOTE | 2021-06-12 01:09 | ED ---
Female Urogenital HPI - General Chief complaint: Urogenital Stated complaint: Lower back pain,Nausea Time Seen by Provider: 06/12/21 00:45 Source: patient, RN notes reviewed Mode of arrival: ambulatory Limitations: no limitations - History of Present Illness Initial comments: This is a pleasant 26-year-old female presents to the emergency department complaining of right flank pain which started about 4 PM. Patient complains of sharp pain to the area which is constant, waxes wanes in intensity. Patient has a history of kidney stones. Patient states pain started suddenly. It radiates from the right lower back around to the right groin area. No hematuria. No vaginal discharge. Denies chance of . No headache, no fever or chills, no changes in vision or hearing, no sore throat or difficulty with speech, no neck pain, no chest pain or shortness of breath, no vomiting no changes in urination or bowel movements, no numbness or tingling, no extremity pain, no skin rashes or lesions. Patient has previously required intervention for kidney stones. - Related Data Home Medications Medication Instructions Recorded Confirmed Cephalexin [Keflex] 500 mg PO BID 01/15/20 01/17/20 Depo-Injection (Unknown Dose) 1 dose SQ DIRECTED 01/15/20 01/17/20 Sertraline [Zoloft] 100 mg PO HS 01/15/20 01/17/20 Previous Rx's Medication Instructions Recorded Ketorolac [Toradol] 10 mg PO Q6HR #15 tab 01/17/20 Ibuprofen [Motrin] 600 mg PO Q8HR PRN #30 tab 02/25/21 Ibuprofen [Motrin] 600 mg PO Q8HR PRN #30 tab 06/12/21 Potassium Chloride 10 meq PO DAILY #7 tab 06/12/21 Allergies Allergy/AdvReac Type Severity Reaction Status Date / Time No Known Allergies Allergy Verified 06/11/21 22:57 Review of Systems ROS Statement: Those systems with pertinent positive or pertinent negative responses have been documented in the HPI. ROS Other: All systems not noted in ROS Statement are negative. Past Medical History Past Medical History: No Reported History Additional Past Medical History / Comment(s): heart murmur, kidney stones. History of Any Multi-Drug Resistant Organisms: None Reported Past Surgical History: Orthopedic Surgery, Tonsillectomy Additional Past Surgical History / Comment(s): fx arm realignment. Past Anesthesia/Blood Transfusion Reactions: No Reported Reaction Past Psychological History: Anxiety, Bipolar, Depression, PTSD Smoking Status: Current every day smoker Past Alcohol Use History: None Reported Past Drug Use History: None Reported - Past Family History Mother Family Medical History: No Reported History General Exam Limitations: no limitations General appearance: alert, in distress Head exam: Present: atraumatic, normocephalic, normal inspection Eye exam: Present: normal appearance, PERRL, EOMI. Absent: scleral icterus, conjunctival injection, periorbital swelling ENT exam: Present: normal exam, mucous membranes moist, TM's normal bilaterally, normal external ear exam Neck exam: Present: normal inspection. Absent: tenderness, meningismus, lymphadenopathy Respiratory exam: Present: normal lung sounds bilaterally. Absent: respiratory distress, wheezes, rales, rhonchi, stridor Cardiovascular Exam: Present: regular rate, normal rhythm, normal heart sounds. Absent: systolic murmur, diastolic murmur, rubs, gallop, clicks GI/Abdominal exam: Present: soft, normal bowel sounds. Absent: distended, tenderness, guarding, rebound, rigid Extremities exam: Present: normal inspection, full ROM, normal capillary refill. Absent: tenderness, pedal edema, joint swelling, calf tenderness Back exam: Present: normal inspection, CVA tenderness (R), CVA tenderness (L) Neurological exam: Present: alert, oriented X3, CN II-XII intact Psychiatric exam: Present: normal affect, normal mood Skin exam: Present: warm, dry, intact, normal color. Absent: rash Course Vital Signs 06/11/21 22:54 Temperature 99.5 F Pulse Rate 97 Respiratory 16 Rate Blood Pressure 122/83 O2 Sat by Pulse 100 Oximetry Medical Decision Making - Medical Decision Making Patient reevaluated and resting comfortably in bed. Discussed all findings with the patient. Patient does have some findings which possibly could be related medullary sponge kidney. We'll have patient follow up with urology on Monday. Patient was given a starter pack of acetaminophen/codeine and ibuprofen. There was no evidence of infectious process. Patient was feeling better. Discussed hydration strategies. There is possibly patient passed a small kidney stone or she could have other etiology for the pain. However there is no evidence of appendicitis or any inflammatory infectious etiology. The patient's test was negative. The case was discussed in detail with ED attending physician. Presentation, findings, treatment plan discussed in detail. Supervising physicians Dr. Ham - Lab Data Result diagrams: 06/11/21 23:08 06/11/21 23:08 Lab Results 06/11/21 06/11/21 06/11/21 Range/Units 23:08 23:08 23:08 WBC 13.6 H (3.8-10.6) k/uL RBC 4.99 (3.80-5.40) m/uL Hgb 14.7 (11.4-16.0) gm/dL Hct 43.9 (34.0-46.0) % MCV 88.0 (80.0-100.0) fL MCH 29.4 (25.0-35.0) pg MCHC 33.4 (31.0-37.0) g/dL RDW 13.2 (11.5-15.5) % Plt Count 386 (150-450) k/uL MPV 7.9 Neutrophils % 57 % Lymphocytes % 34 % Monocytes % 5 % Eosinophils % 1 % Basophils % 1 % Neutrophils # 7.7 (1.3-7.7) k/uL Lymphocytes # 4.7 (1.0-4.8) k/uL Monocytes # 0.6 (0-1.0) k/uL Eosinophils # 0.2 (0-0.7) k/uL Basophils # 0.1 (0-0.2) k/uL Sodium 138 (137-145) mmol/L Potassium 3.3 L (3.5-5.1) mmol/L Chloride 103 (98-107) mmol/L Carbon Dioxide 24 (22-30) mmol/L Anion Gap 11 mmol/L BUN 6 L (7-17) mg/dL Creatinine 0.59 (0.52-1.04) mg/dL Est GFR (CKD-EPI)AfAm >90 (>60 ml/min/1.73 sqM) Est GFR (CKD-EPI)NonAf >90 (>60 ml/min/1.73 sqM) Glucose 83 (74-99) mg/dL Calcium 9.3 (8.4-10.2) mg/dL Total Bilirubin 0.7 (0.2-1.3) mg/dL AST 25 (14-36) U/L ALT 26 (4-34) U/L Alkaline Phosphatase 105 (38-126) U/L Total Protein 7.8 (6.3-8.2) g/dL Albumin 4.4 (3.5-5.0) g/dL Urine Color Light Yellow Urine Appearance Clear (Clear) Urine pH 7.0 (5.0-8.0) Ur Specific [place] 1.006 (1.001-1.035) Urine Protein Negative (Negative) Urine Glucose (UA) Negative (Negative) Urine Ketones Negative (Negative) Urine Blood Negative (Negative) Urine Nitrite Negative (Negative) Urine Bilirubin Negative (Negative) Urine Urobilinogen <2.0 (<2.0) mg/dL Ur Leukocyte Esterase Small H (Negative) Urine RBC 2 (0-5) /hpf Urine WBC 3 (0-5) /hpf Ur Squamous Epith Cells 4 (0-4) /hpf Urine Bacteria Rare H (None) /hpf Urine HCG, Qual (Not Detectd) 06/11/21 Range/Units 23:08 WBC (3.8-10.6) k/uL RBC (3.80-5.40) m/uL Hgb (11.4-16.0) gm/dL Hct (34.0-46.0) % MCV (80.0-100.0) fL MCH (25.0-35.0) pg MCHC (31.0-37.0) g/dL RDW (11.5-15.5) % Plt Count (150-450) k/uL MPV Neutrophils % % Lymphocytes % % Monocytes % % Eosinophils % % Basophils % % Neutrophils # (1.3-7.7) k/uL Lymphocytes # (1.0-4.8) k/uL Monocytes # (0-1.0) k/uL Eosinophils # (0-0.7) k/uL Basophils # (0-0.2) k/uL Sodium (137-145) mmol/L Potassium (3.5-5.1) mmol/L Chloride (98-107) mmol/L Carbon Dioxide (22-30) mmol/L Anion Gap mmol/L BUN (7-17) mg/dL Creatinine (0.52-1.04) mg/dL Est GFR (CKD-EPI)AfAm (>60 ml/min/1.73 sqM) Est GFR (CKD-EPI)NonAf (>60 ml/min/1.73 sqM) Glucose (74-99) mg/dL Calcium (8.4-10.2) mg/dL Total Bilirubin (0.2-1.3) mg/dL AST (14-36) U/L ALT (4-34) U/L Alkaline Phosphatase (38-126) U/L Total Protein (6.3-8.2) g/dL Albumin (3.5-5.0) g/dL Urine Color Urine Appearance (Clear) Urine pH (5.0-8.0) Ur Specific [place] (1.001-1.035) Urine Protein (Negative) Urine Glucose (UA) (Negative) Urine Ketones (Negative) Urine Blood (Negative) Urine Nitrite (Negative) Urine Bilirubin (Negative) Urine Urobilinogen (<2.0) mg/dL Ur Leukocyte Esterase (Negative) Urine RBC (0-5) /hpf Urine WBC (0-5) /hpf Ur Squamous Epith Cells (0-4) /hpf Urine Bacteria (None) /hpf Urine HCG, Qual Not Detected (Not Detectd) Disposition Clinical Impression: Acute right flank pain, Hypokalemia Disposition: HOME SELF-CARE Condition: Good Instructions (If sedation given, give patient instructions): Hypokalemia (ED), Flank Pain (ED) Additional Instructions: Follow-up with your regular physician as directed. Return to the ER immediately if any symptoms worsen, new symptoms arise, or any other problems develop. Make a follow-up appointment with urologist on Monday. Her computed tomography scan did not show any acute changes but there was possibility of some cyts your kidney--which would be unrelated.. Make sure it is diet high in potassium. Your potassium was a bit low here today. Is patient prescribed a controlled substance at d/c from ED?: No Referrals: Hawk Gutiérrez DO [Primary Care Provider] - 1-2 days Flip Hall MD [STAFF PHYSICIAN] - 06/15/21 Time of Disposition: 03:07
[2021-06-12] MEDS ORDERED: POTASSIUM CHLORIDE ER 20 MEQ TAB.ER PO STA (02:28)
--- NOTE | 2021-06-12 02:40 | CT ---
EXAMINATION TYPE: CT abdomen pelvis wo con DATE OF EXAM: 06/12/2021 COMPARISON: 01/02/2020 HISTORY: right flank pain. possible kidney stone. prior on PACS CT DLP: 1250.4 mGycm Automated exposure control for dose reduction was used. Images obtained from the diaphragm to the floor the pelvis without contrast. Lung bases are clear. There is no pleural effusion. Heart size is normal. No pericardial effusion. Liver spleen stomach pancreas and gallbladder appear intact. The bile ducts are not dilated. There is no adrenal mass. Kidneys show normal size. There is no hydronephrosis. Ureters are not dilat ed. There is no retroperitoneal adenopathy. There is some faint calcification at the renal papilla bi laterally. There is no evidence of a renal mass. The bladder distends. There is no inguinal hernia. N o free fluid in the pelvis. Uterus is anteverted. No pelvic mass. Lumbar vertebrae have normal alignm ent. Posterior elements are intact. Bony pelvis is intact. The hip joints are intact. Sacroiliac join ts appear normal. Appendix is lateral and appears normal. There is no mesenteric edema. No ascites or free air. No cyndy l obstruction. IMPRESSION: No acute abnormality of the abdomen and pelvis. Normal appendix. There is clearing of the left side h ydronephrosis and hydroureter compared to the old exam. There is clearing of the distal left ureteral calculus. Normal appendix. Faint calcifications present in both kidneys at the renal papilla. This could relate to form of medul lesli sponge kidney.
[2021-06-12] MEDS ORDERED: IBUPROFEN 600 MG STARTER PACK 4 TAB BTL PO STA (03:06)
[2021-06-12] MEDS ORDERED: ACET/COD 300 MG/30 MG STARTER PACK 6 TAB BTL PO STA (03:06)
[2021-06-12 03:20] VITALS: BP 119/77; PULSE 78
== END 2021-06-12 03:20 | disposition home or self-care (01) ==
LOC: EC 22:04
DX: E87.6 Hypokalemia (principal); F17.200 Nicotine dependence, unspecified, uncomplicated
CPT/HCPCS: 36415; 74176; 80053; 81001; 81025; 85025; 96361; 96374; 96375; 99284

== ENCOUNTER 2021-07-09 11:22 | Observation (INO) | payer OTHER ==
[2021-07-09 11:26] VITALS: RESP 18
[2021-07-09 12:10] LABS: Amorphous Sediment,Urine Rare /hpf; Appearance,Urine Cloudy (Clear); Bacteria,Urine Rare /hpf; Bilirubin,Urine Negative (Negative); Blood,Urine Negative (Negative); Color,Urine Yellow; Glucose,Urine (UA) Negative (Negative); Ketones,Urine Negative (Negative); Leukocyte Esterase,Urine Large (Negative); Mucus,Urine Few /hpf; Nitrite,Urine Negative (Negative); PH, Urine 6.5 (5.0-8.0); Protein,Urine 1+ (Negative); RBC,Urine 1 /hpf (0-5); Specific Gravity,Urine 1.025 (1.001-1.035); Squamous Epithelial Cell,Urine 9 /hpf (0-4); WBC,Urine 10 /hpf (0-5)
[2021-07-09 12:15] LABS: ALT 30 U/L (4-34); AST 27 U/L (14-36); African American GFR (CKD) >90 (>60 ml/min/1.73 sqM); Albumin 4.5 g/dL (3.5-5.0); Alkaline Phosphatase 100 U/L (38-126); Anion Gap 12 mmol/L; Blood Urea Nitrogen 12 mg/dL (7-17); Calcium 9.3 mg/dL (8.4-10.2); Carbon Dioxide 23 mmol/L (22-30); Chloride 101 mmol/L (98-107); Glucose 111 mg/dL (74-99); Non-African American GFR(CKD) >90 (>60 ml/min/1.73 sqM); Potassium 2.9 mmol/L (3.5-5.1); Sodium 136 mmol/L (137-145); Total Bilirubin 0.4 mg/dL (0.2-1.3); Total Protein 7.4 g/dL (6.3-8.2)
[2021-07-09 12:18] LABS: Basophils % (A) 1 %; Eosinophils # (A) 0.1 k/uL (0-0.7); Eosinophils % (A) 1 %; HCT 41.2 % (34.0-46.0); Lymphocytes # (A) 0.6 k/uL (1.0-4.8); Lymphocytes % (A) 8 %; MCH 29.7 pg (25.0-35.0); MCV 87.4 fL (80.0-100.0); Mean Platelet Volume 8.3; Monocytes # (A) 0.4 k/uL (0-1.0); Monocytes % (A) 5 %; Neutrophils # (A) 6.5 k/uL (1.3-7.7); Neutrophils % (A) 84 %; Platelet Count 289 k/uL (150-450); RBC 4.71 m/uL (3.80-5.40); RDW 13.2 % (11.5-15.5); WBC 7.7 k/uL (3.8-10.6)
[2021-07-09] MEDS ORDERED: POTASSIUM CHLORIDE ER 20 MEQ TAB.ER PO STA (12:22)
[2021-07-09] MEDS ORDERED: MORPHINE SULFATE 4 MG/ML SYRINGE IVP STA (12:32)
[2021-07-09] MEDS ORDERED: ONDANSETRON 4 MG/2 ML VIAL IVP STA (12:33)
--- NOTE | 2021-07-09 13:06 | XR ---
EXAMINATION TYPE: XR chest 2V DATE OF EXAM: 07/09/2021 COMPARISON: Chest x-ray 06/12/2014 HISTORY: Chest pain TECHNIQUE: Frontal and lateral views of the chest are obtained. FINDINGS: There is no focal air space opacity, pleural effusion, or pneumothorax seen. The cardiac silhouette size is within normal limits. There are overlying leads. The osseous structures are intac t. IMPRESSION: No acute cardiopulmonary process.
--- NOTE | 2021-07-09 14:10 | US ---
EXAMINATION TYPE: US kidneys/renal and bladder DATE OF EXAM: 07/09/2021 COMPARISON: Renal ultrasound February 04, 2020. CT abdomen and pelvis June 12, 2021 CLINICAL HISTORY: bilateral back and flank pain. EXAM MEASUREMENTS: Right Kidney: 12.6 x 4.3 x 4.4 cm Left Kidney: 12.7 x 4.9 x 4.1 cm Right Kidney: No hydronephrosis or masses seen Left Kidney: No hydronephrosis or masses seen Bladder: Anechoic Bilateral Jets seen: No Exam suboptimal secondary to patient's large body habitus. Kidneys symmetric and normal in size. No h ydronephrosis seen bilaterally. No concerning masses seen on images saved. Bladder poorly distended w ithout intraluminal mass or wall thickening. IMPRESSION: Suboptimal study without hydronephrosis seen bilaterally.
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
[2021-07-09] MEDS ORDERED: HYDROmorphone 0.5 MG/0.5 ML SYRINGE IVP STA (14:19)
[2021-07-09] MEDS ORDERED: SODIUM CHLORIDE 0.9% 2,000 ML IV STA (15:03)
[2021-07-09] MEDS ORDERED: NALOXONE 0.4 MG/ML 1 ML VIAL IV PRN (15:04)
[2021-07-09 16:25] LABS: Basophils % (A) 0 %; Eosinophils # (A) 0.1 k/uL (0-0.7); Eosinophils % (A) 1 %; HCT 41.2 % (34.0-46.0); HGB 13.5 gm/dL (11.4-16.0); Lymphocytes # (A) 0.5 k/uL (1.0-4.8); Lymphocytes % (A) 10 %; MCHC 32.7 g/dL (31.0-37.0); MCV 88.7 fL (80.0-100.0); Mean Platelet Volume 8.2; Monocytes # (A) 0.3 k/uL (0-1.0); Monocytes % (A) 5 %; Neutrophils # (A) 4.4 k/uL (1.3-7.7); Neutrophils % (A) 83 %; Platelet Count 268 k/uL (150-450); RBC 4.64 m/uL (3.80-5.40); RDW 13.3 % (11.5-15.5); WBC 5.3 k/uL (3.8-10.6)
--- NOTE | 2021-07-09 18:05 | CT ---
EXAMINATION TYPE: CT thor lumbar spine wo con DATE OF EXAM: 07/09/2021 COMPARISON: None HISTORY: Back pain CT DLP: 2144.4 mGycm Automated exposure control for dose reduction was used. Images obtained from the level of T1-S1 vertebra with no contrast. The thoracic and lumbar vertebrae have fairly normal spacing and alignment. No compression fracture. Posterior elements are intact. No evidence of thoracic paraspinal mass. No evidence of lumbar spinal stenosis. The sacroiliac joints appear intact. No focal bone destruction. IMPRESSION: Normal CT scan of the thoracic and lumbar spine.
[2021-07-09] MEDS: MORPHINE SULFATE 4 MG/ML SYRINGE IVP PRN (20:18)
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
[2021-07-10] MEDS: FAMOTIDINE 20 MG TAB PO SCH ×3 (00:28→21:33)
[2021-07-10] MEDS: HEPARIN SODIUM,PORCINE/PF 5,000 UNIT/0.5 ML SYRINGE SQ SCH ×4 (00:29→21:34)
[2021-07-10] MEDS: SODIUM CHLORIDE 0.9% 1,000 ML IV SCH ×2 (00:29→13:51)
[2021-07-10] MEDS: lamoTRIgine 25 MG TAB PO SCH ×3 (00:29→21:33)
[2021-07-10] MEDS: ACETAMINOPHEN TAB 325 MG TAB PO PRN ×3 (00:30→17:30)
[2021-07-10] MEDS: buPROPion XL 300 MG TAB.ER.24H PO SCH (08:33)
[2021-07-10] MEDS: MORPHINE SULFATE 4 MG/ML SYRINGE IVP PRN ×2 (09:54→17:26)
[2021-07-10 11:52] LABS: Basophils # (A) 0.02 X 10*3/uL (0.00-0.10); Basophils % (A) 0.8 %; Eosinophils # (A) 0 X 10*3/uL (0.04-0.35); Eosinophils % (A) 0 %; HCT 37.6 % (37.2-46.3); HGB 12.3 g/dL (12.0-15.0); Immature Grans, Automated 0.4 %; Lymphocytes # (A) 0.72 X 10*3/uL (0.90-5.00); Lymphocytes % (A) 27.1 %; MCH 29.2 pg (27.0-32.0); MCHC 32.7 g/dL (32.0-37.0); MCV 89.3 fL (80.0-97.0); Mean Platelet Volume 11.4 fL (9.5-12.2); Monocytes % (A) 11.3 %; NRBC Per 100 WBC 0 /100 WBCS (0.0-0.0); Neutrophils # (A) 1.61 X 10*3/uL (1.80-7.70); Neutrophils % (A) 60.4 %; Platelet Count 214 X 10*3/uL (140-440); RBC 4.21 X 10*6/uL (4.10-5.20); RDW 13.9 % (11.5-14.5); WBC 2.66 X 10*3/uL (4.50-10.00)
[2021-07-10 12:17] LABS: African American GFR (CKD) 140.6 (60.0-200.0); Anion Gap 13.1 mmol/L (10.00-18.00); Calcium 8.4 mg/dL (8.7-10.3); Carbon Dioxide 20.9 mmol/L (20.0-27.5); Non-African American GFR(CKD) 121.3 (60.0-200.0); Potassium 2.8 mmol/L (3.5-5.5)
[2021-07-10] MEDS ORDERED: Potassium Replacement Protocol 1 EACH MISC MISCELLANE PRN ×2 (13:29→13:48)
[2021-07-10] MEDS: POTASSIUM CHLORIDE ER 20 MEQ TAB.ER PO SCH ×4 (13:54→17:32)
[2021-07-10] MEDS ORDERED: POTASSIUM CHLORIDE 10 MEQ in WATER FOR INJECTION 1 100ML.BAG IVPB SCH (14:00)
[2021-07-10] MEDS ORDERED: BEBTELOVIMAB (EUA) 175 MG/2 ML VIAL IV ONE (17:00)
[2021-07-11] MEDS: MORPHINE SULFATE 4 MG/ML SYRINGE IVP PRN (01:17)
[2021-07-11] MEDS: SODIUM CHLORIDE 0.9% 1,000 ML IV SCH ×2 (02:21→14:16)
[2021-07-11] MEDS: FAMOTIDINE 20 MG TAB PO SCH (07:25)
[2021-07-11] MEDS: ACETAMINOPHEN TAB 325 MG TAB PO PRN (07:25)
[2021-07-11] MEDS: HEPARIN SODIUM,PORCINE/PF 5,000 UNIT/0.5 ML SYRINGE SQ SCH (07:26)
[2021-07-11] MEDS: buPROPion XL 300 MG TAB.ER.24H PO SCH (07:26)
[2021-07-11] MEDS: lamoTRIgine 25 MG TAB PO SCH (07:26)
[2021-07-11] MEDS ORDERED: ZINC SULFATE 220 MG CAP PO SCH (09:00)
[2021-07-11] MEDS ORDERED: ASCORBIC ACID 500 MG TAB PO SCH (09:00)
[2021-07-11] MEDS ORDERED: CHOLECALCIFEROL 25 MCG (1000 IU) TABLET PO SCH (09:00)
[2021-07-11 09:18] LABS: African American GFR (CKD) 149.9 (60.0-200.0); Anion Gap 11.6 mmol/L (10.00-18.00); BUN/Creat Ratio 11.58 Ratio (12.00-20.00); Blood Urea Nitrogen 6.7 mg/dL (9.0-27.0); C Reactive Protein 1.7 mg/dL (0.00-0.80); Carbon Dioxide 21.1 mmol/L (20.0-27.5); Non-African American GFR(CKD) 129.3 (60.0-200.0); Potassium 3.5 mmol/L (3.5-5.5)
[2021-07-11 09:22] LABS: HCT 38.6 % (37.2-46.3); HGB 12.4 g/dL (12.0-15.0); MCH 28.8 pg (27.0-32.0); MCHC 32.1 g/dL (32.0-37.0); MCV 89.6 fL (80.0-97.0); Mean Platelet Volume 11.6 fL (9.5-12.2); NRBC Per 100 WBC 0 /100 WBCS (0.0-0.0); Platelet Count 196 X 10*3/uL (140-440); RBC 4.31 X 10*6/uL (4.10-5.20); WBC 4.24 X 10*3/uL (4.50-10.00)
[2021-07-11 10:19] LABS: Basophils # (M) 0.08 X 10*3/uL (0.00-0.10); Eosinophils # (M) 0.04 X 10*3/uL (0.04-0.35); Lymphocytes # (M) 1.57 X 10*3/uL (0.90-5.00); Monocytes # (M) 0.04 X 10*3/uL (0.20-1.00); Neutrophils % (M) 59 %; RBC Morphology NORMAL
[2021-07-11 14:49] VITALS: BP 113/75; PULSE 71; TEMP 98.7
== END 2021-07-11 17:59 | disposition home or self-care (01) ==
LOC: EC 11:22 → 6NMEDSUR 15:36
PROVIDERS: ADMIT Internal Medicine; ATTEND Internal Medicine
DX: R07.89 Other chest pain (principal); R11.2 Nausea with vomiting, unspecified; E87.6 Hypokalemia; F17.210 Nicotine dependence, cigarettes, uncomplicated; F41.9 Anxiety disorder, unspecified; F31.9 Bipolar disorder, unspecified; G89.29 Other chronic pain; M54.50 Low back pain, unspecified; R20.2 Paresthesia of skin; R20.0 Anesthesia of skin; R68.83 Chills (without fever); I10 Essential (primary) hypertension; R00.0 Tachycardia, unspecified; R01.1 Cardiac murmur, unspecified; U07.1 COVID-19; E66.01 Morbid (severe) obesity due to excess calories; Z68.41 Body mass index [BMI] 40.0-44.9, adult; F43.10 Post-traumatic stress disorder, unspecified; Z87.442 Personal history of urinary calculi; Z87.828 Personal history of other (healed) physical injury and trauma; Z79.899 Other long term (current) drug therapy; Z79.3 Long term (current) use of hormonal contraceptives; Z96.0 Presence of urogenital implants; Z71.6 Tobacco abuse counseling
CPT/HCPCS: 96376 ×3; 96361 ×3; 96365; 96366; 96372 ×2; 96375; 99285; 36415; 85379; 80053; 80048 ×2; 83615; 84132; 84484; 85025 ×3; 86140; 81001; 81025; 87086; 84145; 87636; 71046; 76770; 72128; 72131; G0378 ×3; M0222; J2270 ×3; J2405; J0696; J1170; J1644 ×2; Q0222; 93005

== ENCOUNTER 2022-01-26 18:05 | Emergency (ER) | payer OTHER ==
[2022-01-26 18:31] VITALS: RESP 20
[2022-01-26] MEDS ORDERED: KETOROLAC 15 MG/ML 1 ML VIAL IM STA (18:54)
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
[2022-01-26] MEDS ORDERED: ORPHENADRINE 30 MG/ML 2 ML VIAL IM STA (20:59)
[2022-01-26 21:23] VITALS: BP 148/67; PULSE 92; TEMP 98.3
== END 2022-01-26 21:22 | disposition home or self-care (01) ==
LOC: EC 18:05
DX: M54.2 Cervicalgia (principal); F41.9 Anxiety disorder, unspecified; F31.9 Bipolar disorder, unspecified; F17.200 Nicotine dependence, unspecified, uncomplicated; V49.9XXA Car occupant (driver) (passenger) injured in unspecified traffic accident, initial encounter
CPT/HCPCS: 72050; 73030; 73060; 73090; 71046; 99284; 96372 ×2; J2360; J1885

== ENCOUNTER 2022-09-16 22:15 | Emergency (ER) | payer OTHER ==
[2022-09-16 22:19] VITALS: TEMP 98.8
[2022-09-16] MEDS ORDERED: ACETAMINOPHEN TAB 500 MG TAB PO STA (23:20)
--- NOTE | 2022-09-16 23:28 | ED ---
Back Pain HPI - General Chief Complaint: Back Pain/Injury Stated Complaint: Back pain Time Seen by Provider: 09/16/22 22:35 Source: patient Limitations: no limitations - History of Present Illness Initial Comments: 27-year-old female presenting to the ED with a chief complaint of back pain. Patient states that this is a chronic issue that she has been dealing with for the past 3 months however notes recent worsening of the pain. States that she has seen her PCP for this who has an MRI scheduled. Notes prior unremarkable lumbar x-rays and notes no new injuries since prior imaging. States over the past few days, worsening of this pain and states now is having numbness radiating down her thigh. Has been taking ibuprofen 800 and baclofen 10 mg with minimal relief of the pain. Denies incontinence or saddle anesthesia. No other complaints at this time. - Related Data Home Medications Medication Instructions Recorded Confirmed Medroxyprogesterone Acetate 150 mg IM Q90D 07/09/21 07/09/21 [Depo-Provera] buPROPion XL [Wellbutrin XL] 300 mg PO DAILY 07/09/21 07/09/21 lamoTRIgine [LaMICtal] 25 mg PO BID 07/09/21 07/09/21 Previous Rx's Medication Instructions Recorded Ascorbic Acid [Vitamin C] 500 mg PO DAILY #30 tab 07/11/21 Cholecalciferol [Vitamin D3 (25 25 mcg PO DAILY #30 tab 07/11/21 Mcg = 1000 Iu)] Zinc Sulfate [Orazinc] 220 mg PO DAILY #30 cap 07/11/21 Cyclobenzaprine [Flexeril] 10 mg PO HS PRN #10 tab 01/26/22 Allergies Allergy/AdvReac Type Severity Reaction Status Date / Time No Known Allergies Allergy Verified 01/26/22 18:31 Review of Systems ROS Statement: Those systems with pertinent positive or pertinent negative responses have been documented in the HPI. ROS Other: All systems not noted in ROS Statement are negative. Past Medical History Past Medical History: No Reported History Additional Past Medical History / Comment(s): heart murmur, kidney stones. History of Any Multi-Drug Resistant Organisms: None Reported Past Surgical History: Orthopedic Surgery, Tonsillectomy Additional Past Surgical History / Comment(s): fx arm realignment. Past Anesthesia/Blood Transfusion Reactions: No Reported Reaction Past Psychological History: Anxiety, Bipolar, Depression, PTSD Smoking Status: Current every day smoker Past Alcohol Use History: None Reported Past Drug Use History: None Reported - Past Family History Mother Family Medical History: No Reported History General Exam Limitations: no limitations General appearance: alert Neck exam: Present: normal inspection Respiratory exam: Present: normal lung sounds bilaterally Cardiovascular Exam: Present: regular rate, normal rhythm GI/Abdominal exam: Present: soft Extremities exam: Present: other (Strength and sensation equal and intact in bilateral upper and lower extremities.) Back exam: Present: other (No midline cervical or thoracic spinal tenderness to palpation. Midline upper lumbar spinal tenderness to palpation.) Neurological exam: Present: alert, oriented X3 Skin exam: Present: warm, dry Course Vital Signs 09/16/22 09/17/22 22:16 00:12 Temperature 98.8 F Pulse Rate 105 H 96 Respiratory 16 Rate Blood Pressure 129/78 153/100 O2 Sat by Pulse 97 Oximetry Medical Decision Making - Medical Decision Making Was pt. sent in by a medical professional or institution (, PA, TA[employer], urgent care, hospital, or group home...) When possible be specific @ -No Did you speak to anyone other than the patient for history (EMS, parent, family, police, friend...)? What history was obtained from this source @ -No Did you review nursing and triage notes (agree or disagree)? Why? @ -I reviewed and agree with nursing and triage notes Were old charts reviewed (outside hosp., previous admission, EMS record, old EKG, old radiological studies, urgent care reports/EKG's, group home records)? Report findings @ -No old charts were reviewed Differential Diagnosis (chest pain, altered mental status, abdominal pain women, abdominal pain men, vaginal bleeding, weakness, fever, dyspnea, syncope, headache, dizziness, GI bleed, back pain, seizure, CVA, palpatations, mental health, musculoskeletal)? @ -Differential Back Pain: Strain, zoster, cauda equina syndrome, epidural abscess, vertebral osteomyelitis, discitis, fracture, subluxation, disc herniation, DJD, spinal stenosis, dissection, AAA, pancreatitis, peptic ulcer disease, pyelonephritis, kidney stone, this is not meant to be an all-inclusive list. EKG interpreted by me (3pts min.). @ -As above X-rays interpreted by me (1pt min.). @ -X-ray shows some scoliosis of the spine however no acute findings. CT interpreted by me (1pt min.). @ -None done U/S interpreted by me (1pt. min.). @ -None done What testing was considered but not performed or refused? (CT, X-rays, U/S, labs)? Why? @ -None What meds were considered but not given or refused? Why? @ -None Did you discuss the management of the patient with other professionals (professionals i.e. , PA, [employer], lab, RT, psych nurse, social media executive, humanities coordinator, teacher, investigation officer, case monitor)? Give summary @ -No Was smoking cessation discussed for >3mins.? @ -No Was critical care preformed (if so, how long)? @ -No Were there social determinants of health that impacted care today? How? (Homelessness, low income, unemployed, alcoholism, drug addiction, transportation, low edu. Level, literacy, decrease access to med. care, custodial, rehab)? @ -No Was there de-escalation of care discussed even if they declined (Discuss DNR or withdrawal of care, Hospice)? DNR status @ -No What co-morbidities impacted this encounter? (DM, HTN, Smoking, COPD, CAD, Cancer, CVA, ARF, Chemo, Hep., AIDS, mental health diagnosis, sleep apnea, morbid obesity)? @ -None Was patient admitted / discharged? Hospital course, mention meds given and route, prescriptions, significant lab abnormalities, going to OR and other per tinent info. @ -Discharge. Patient had improvement of pain here with Tylenol and morphine. No alarms symptoms at this time. Patient advised to follow up with PCP as scheduled for MRI with further treatment pending results of MRI. Charged home in stable condition. Discussed return precautions with patient who verbalizes agreement. Undiagnosed new problem with uncertain prognosis? @ -No Drug Therapy requiring intensive monitoring for toxicity (Heparin, Nitro, Insulin, Cardizem)? @ -No Were any procedures done? @ -No Diagnosis/symptom? @ -Back pain Acute, or Chronic, or Acute on Chronic? @ -Acute on chronic Uncomplicated (without systemic symptoms) or Complicated (systemic symptoms)? @ -Uncomplicated Side effects of treatment? @ -No Exacerbation, Progression, or Severe Exacerbation? @ -No Poses a threat to life or bodily function? How? (Chest pain, [place], [place], pneumonia, PE, COPD, DKA, ARF, appy, cholecystitis, CVA, Diverticulitis, Homicidal, Suicidal, threat to staff... and all critical care pts) @ -No Disposition Clinical Impression: Back pain Disposition: HOME SELF-CARE Condition: Good Instructions (If sedation given, give patient instructions): Acute Low Back Pain (ED) Additional Instructions: Please return to the Emergency Department if symptoms worsen or any other concerns. Follow up with PCP. Is patient prescribed a controlled substance at d/c from ED?: No Referrals: Hawk Gutiérrez DO [Primary Care Provider] - 1-2 days Time of Disposition: 00:22
[2022-09-16] MEDS ORDERED: MORPHINE SULFATE 4 MG/ML SYRINGE IVP STA (23:47)
[2022-09-17] MEDS ORDERED: MORPHINE SULFATE 4 MG/ML SYRINGE IM STA (00:11)
[2022-09-17 00:30] VITALS: BP 114/69; PULSE 76; RESP 18
--- NOTE | 2022-09-17 01:35 | XR ---
EXAM: XR Lumbosacral Spine, 2 or 3 Views CLINICAL HISTORY: ITS.REASON XR Reason: back pain TECHNIQUE: Frontal and lateral views of the lumbar spine and sacrum. COMPARISON: No relevant prior studies available. FINDINGS: Vertebrae: No acute fracture. Normal sagittal alignment. Minimal levoscoliosis. Disc spaces: Mild L5-S1 disc height loss. Soft tissues: Unremarkable. IMPRESSION: No acute findings.
== END 2022-09-17 00:30 | disposition home or self-care (01) ==
LOC: EC 22:15
DX: M54.50 Low back pain, unspecified (principal); M41.9 Scoliosis, unspecified; F31.9 Bipolar disorder, unspecified; F41.9 Anxiety disorder, unspecified; F17.200 Nicotine dependence, unspecified, uncomplicated; Z79.899 Other long term (current) drug therapy
CPT/HCPCS: 72100; 96372; 99283

== ENCOUNTER → 2023-04-12 | Outpatient (CLI) | payer OTHER ==
--- NOTE | 2023-04-12 14:11 | US ---
EXAMINATION TYPE: US carotid duplex BILAT DATE OF EXAM: 04/12/2023 COMPARISON: NONE CLINICAL INDICATION: Female, 27 years old with history of H93.A3 BILATERAL SUBJECTIVE PULSATILE TINNI TUS OF; Patient head pulsing sensation. Patient states high blood pressure, no medication taken. Curr ent smoker. TECHNIQUE: Carotid duplex ultrasound examination. Indirect Doppler criteria was utilized. FINDINGS: EXAM MEASUREMENTS: RIGHT: Peak Systolic Velocity (PSV) cm/sec ----- Right CCA: 150.0 ----- Right ICA: 148.0 ----- Right ECA: 179.8 ICA/CCA ratio: 1.0 RIGHT: End Diastole cm/sec ----- Right CCA: 42.9 ----- Right ICA: 44.8 ----- Right ECA: 27.0 LEFT: Peak Systolic Velocity (PSV) cm/sec ----- Left CCA: 175.6 ----- Left ICA: 139.1 ----- Left ECA: 167.3 ICA/CCA ratio: 0.8 LEFT: End Diastole cm/sec ----- Left CCA: 52.5 ----- Left ICA: 41.5 ----- Left ECA: 27.4 VERTEBRALS (direction of flow): Right Vertebral: Antegrade Left Vertebral: Antegrade Rhythm: Normal FURNITURE POLISHER NOTES: No plaque seen. Elevated velocities seen. Elevated velocities throughout bilateral CCA, ICA, and ECA. IMPRESSION: 1. No significant atheromatous plaquing or wall thickening evident. However, velocities are elevated. This appears unrelated to stenosis. Criteria for Assigning % of Stenosis / Diameter reduction (Estimation based on the indirect measurements of the internal carotid artery velocities (ICA PSV). 1. Normal (no stenosis)=ICA PSV < 125 cm/s: ratio < 2.0: ICA EDV<40 cm/s. 2. Less than 50% stenosis=ICA PSV < 125 cm/s: ratio < 2.0: ICA EDV<40 cm/s. 3. 50 to 69% stenosis=ICA PSV of 125 to 230 cm/s: ration 2.0 ? 4.0: ICA EDV 40-100 cm/s. 4. Greater than 70% stenosis to near occlusion= ICA PSV > 230 cm/s: ratio > 4.0: ICA EDV > 100 cm/s. 5. Near occlusion= ICA PSV velocities may be low or undetectable: variable ratio and ICA EDV. 6. Total occlusion=unable to detect flow.
== END | disposition home or self-care (01) ==
LOC: RADUSWWP 10:12
PROVIDERS: ATTEND Family Medicine
DX: H93.A3 Pulsatile tinnitus, bilateral (principal); R03.0 Elevated blood-pressure reading, without diagnosis of hypertension; F17.200 Nicotine dependence, unspecified, uncomplicated
CPT/HCPCS: 93880

== ENCOUNTER → 2023-04-26 | Outpatient (CLI) | payer OTHER ==
--- NOTE | 2023-04-26 23:25 | MR ---
EXAMINATION TYPE: MR angio head wo con DATE OF EXAM: 04/26/2023 COMPARISON: NONE HISTORY: Bilateral subjective pulsatile tinnitus of ears, Headache, Dizziness TECHNIQUE: Time of flight images focusing on the [place] were performed without contrast.. 2-D and 3-D postprocessing imaging is performed on an independent workstation and reviewed. FINDINGS: Vertebral arteries are patent to the basilar junction. Left vertebral artery is larger or d ominant. There are patent bilateral posterior communicating arteries. There is no large vessel occlus ion or aneurysm in the posterior circulation. Anterior circulation shows patent anterior communicating artery on image 85. No large vessel occlusio n or aneurysm is present. IMPRESSION: No aneurysm at the level of the [place].
== END | disposition home or self-care (01) ==
LOC: RADMRIMAIN 21:45
PROVIDERS: ATTEND Family Medicine
DX: H93.A3 Pulsatile tinnitus, bilateral (principal)
CPT/HCPCS: 70544

== ENCOUNTER → 2023-09-06 | Outpatient (CLI) | payer OTHER ==
--- NOTE | 2023-09-06 21:54 | MR ---
EXAMINATION TYPE: MR tspine/lspine wo con DATE OF EXAM: 09/06/2023 8:13 PM CLINICAL INDICATION:Female, 28 years old with history of M54.6 PAIN T SPINE M54.50 LOW BACK PAIN; PHH , Mid and low back pain, not able to stand for very long COMPARISON: 09/16/2022 TECHNIQUE: Multi planar, multi sequence imaging was performed utilizing: T1-weighted, T2-weighted, a nd turbo inversion recovery imaging of the thoracic and lumbar spine. IV Contrast: cc . None. FINDINGS: Alignment: The thoracic and lumbar vertebral bodies have preserved heights and alignment. Cord: The conus medullaris and the distal spinal cord appear unremarkable with regards to their signa l intensity and morphology. Bones/Discs: Bone signal is within normal limits. Minimal degeneration with osteophyte formation pres ent throughout the spine. THORACIC: No evidence significant spinal canal or neural foraminal stenosis. Spinal cord is within no rmal limits. LUMBAR: T12-L1: No evidence of significant spinal canal stenosis or neural foraminal stenosis. L1-L2: No evidence of significant spinal canal stenosis or neural foraminal stenosis. L2-L3: No evidence of significant spinal canal stenosis or neural foraminal stenosis. L3-L4: No evidence of significant spinal canal stenosis or neural foraminal stenosis. L4-L5: No evidence of significant spinal canal stenosis or neural foraminal stenosis. L5-S1: The disc is rounded posterior morphology without significant spinal canal stenosis. Facet join t arthropathy with mild neural foraminal stenosis. Other findings: None. IMPRESSION: No evidence of significant spinal canal or neural foraminal stenosis within the thoracic or lumbar sp ine.
== END | disposition home or self-care (01) ==
LOC: RADMRIMAIN 18:51
PROVIDERS: ATTEND Family Medicine
DX: M54.6 Pain in thoracic spine (principal); M54.50 Low back pain, unspecified
CPT/HCPCS: 72146; 72148